=== PATIENT | female | born 1985 | race Caucasian/White ===

== ENCOUNTER 2023-06-20 12:46 | Emergency (ER) | payer MEDICAID, SELFPAY ==
[2023-06-20] VITALS (29 sets, daily range): BP systolic 128–170; BP diastolic 83–97; PULSE 60; RESP 18; TEMP 36.6; O2SAT 77–100; BMI 40.9
--- NOTE | 2023-06-20 13:17 | CT_ITS ---
The [address] [address] Patient Name: JYOTI MEHTA MRN: [id number] date: 1985 Sex: F Assigned Patient Location: ER Current Patient Location: ER Accession/Order Number: [id number] Exam Date: 06/20/2023 14:44 Report Date: 06/20/2023 15:15 At the request of: KARTIK LYLES Procedure: CT abdomen pelvis w con EXAM: CT abdomen pelvis w con HISTORY: Abdominal pain COMPARISON: CT abdomen and pelvis 08/03/2023. TECHNIQUE: Following intravenous administration of 90 cc of Omnipaque 350, axial soft tissue windows of the abdomen and pelvis were performed with coronal and sagittal reformats. CT dose reduction technique was used including Automated Exposure Control. Findings: ABDOMEN: There is focal fatty infiltration within the liver adjacent to the falciform ligament. There are multiple stones within the gallbladder. The spleen, pancreas, and kidneys are unremarkable. The visualized portions of the bilateral ureters are nondilated. Unremarkable left adrenal gland. Within the right adrenal gland there is a stable 4.2 cm nodule. Evaluation of the bowel is limited given the absence of oral contrast. No bowel obstruction. The appendix is nondilated. The aorta is normal caliber. No enlarged abdominal lymph nodes or free abdominal fluid. Tiny fat-containing umbilicus hernia. Pelvis: Unremarkable bladder. Fibroid uterus. The largest is a partially pedunculated fibroid off the fundus measuring approximately 6.6 cm. No enlarged pelvic lymph nodes or free pelvic fluid. No aggressive sclerotic or lytic osseous lesions. Grade 1 anterolisthesis of L4 on L5 with bilateral pars interarticularis defects. CT/CT abdomen pelvis w con IMPRESSION: 1. Cholelithiasis. 2. Stable right adrenal nodule. 3. Fibroid uterus. Electronically authenticated by: MISSY CASTILLO Date: 06/20/2023 15:15
[2023-06-20] MEDS: ONDANSETRON PF 4 MG/2 ML VIAL IV (13:30)
[2023-06-20] MEDS: PANTOPRAZOLE SODIUM 40 MG VIAL IV (13:30)
[2023-06-20] MEDS: MORPHINE SULFATE 4 MG/ML VIAL IV (13:30)
[2023-06-20] MEDS: 0.9 % SODIUM CHLORIDE 1,000 ML 100 ML IV (13:31)
[2023-06-20 13:32] LABS: Basophils Percent Auto 0.2 % (0.2-2.0); Eosinophils Percent Auto 0.1 % (0.9-7.0); Hematocrit 44.9 % (36.0-48.0); Hemoglobin 15.6 g/dL (12.0-16.0); Immature Granulocytes Abs Auto 0.04 10^3/uL (0.00-0.03); Immature Granulocytes Pct Auto 0.4 % (0.0-0.5); Lymphocytes Absolute Auto 1.2 10^3/uL (1.2-3.8); Lymphocytes Percent Auto 10.6 % (20.5-60.0); Mean Corpuscular HGB Conc 34.7 g/dL (29.9-35.2); Mean Corpuscular Hemoglobin 29.4 pg (26.7-34.0); Mean Corpuscular Volume 84.6 fL (81.0-99.0); Mean Platelet Volume 10.6 fL (9.5-13.5); Monocytes Absolute Auto 0.6 10^3/uL (0.3-0.8); Monocytes Percent Auto 5.7 % (1.7-12.0); Neutrophils Absolute Auto 9.2 10^3/uL (1.4-6.5); Platelet Count 235 10^3/uL (150-450); Red Blood Count 5.31 10^6/uL (4.20-5.40); Red Cell Distribution Width 13.2 % (11.0-15.0); White Blood Count 11.1 10^3/uL (4.0-11.0)
--- NOTE | 2023-06-20 13:32 | ED_ITS ---
Documented by User: SANDRO Wild 06/20/23 18:37 HPI - Nausea/Vomiting/Diarrhea General Chief complaint: Nausea/Vomiting/Diarrhea Stated complaint: vomiting Time Seen by Provider: 06/20/23 13:12 Source: patient Mode of arrival: walk-in Limitations: no limitations History of Present Illness HPI Narrative: patient is a 37-year-old female who presents to the emergency department for a seven day history of persistent vomiting, diffuse abdominal pain. She reports occasional diarrhea. She has had no objective fevers or upper respiratory symptoms. She denies urinary symptoms. She has had two previous C-sections and removal of one of her ovaries. She is not concerned for . No medications taken prior to arrival. Patient states she has been forcing herself to drink water because she has been dry heaving and she would rather throw up the water then dry heaves . Related Data Previous Rx's Medication Instructions Recorded dicyclomine 20 mg tablet 20 mg PO TID PRN abdominal pain #7 06/20/23 tabs ondansetron 4 mg disintegrating 4 mg PO Q4H PRN nausea and 06/20/23 tablet vomiting 3 days #6 tabs potassium chloride 20 mEq 20 meq PO DAILY #7 tabs 06/20/23 tablet,extended release(part/cryst) promethazine 25 mg rectal 25 mg HI Q6H PRN nausea and 06/20/23 suppository vomiting #6 ea Allergies Allergy/AdvReac Type Severity Reaction Status Date / Time Penicillins AdvReac Intermediate Verified 06/20/23 12:51 Review of Systems ROS Constitutional Denies: fever or chills Ears, nose, mouth, and throat Denies: throat pain Cardiovascular Denies: chest pain Respiratory Denies: shortness of breath or cough Gastrointestinal Reports: abdominal pain, nausea, vomiting and diarrhea Genitourinary Denies: painful urination Musculoskeletal Denies: back pain Integumentary/Breast Denies: rash Neurological Denies: headache Allergic/Immunologic Denies: hives Exam Narrative Exam Narrative: Gen.: Awake, alert, in no distress Head: Normocephalic, atraumatic ENT: Moist mucous membranes Respiratory: No respiratory distress, lungs clear bilaterally Cardio: Regular rate and rhythm Gastrointestinal: Abdomen is soft, nondistended diffusely tender to palpation with no pain out of proportion or point tenderness of the abdomen Extremities: Moves extremities equally Psych: anxious, actively dry heaving on exam Neuro: No focal neuro deficit Skin: Warm, dry, intact Constitutional Vital Signs, click to edit/add: Last Vital Signs Temp 97.8 F 06/20/23 12:51 Pulse 60 06/20/23 12:51 Resp 18 06/20/23 12:51 BP 138/96 H 06/20/23 15:00 Pulse Ox 97 06/20/23 18:30 O2 Del Method Room Air 06/20/23 12:51 Course Vital Signs Vital signs: Vital Signs Temperature 97.8 F 06/20/23 12:51 Pulse Rate 60 06/20/23 12:51 Respiratory Rate 18 06/20/23 12:51 Blood Pressure 170/88 H 06/20/23 12:51 Pulse Oximetry 98 06/20/23 12:51 Oxygen Delivery Method Room Air 06/20/23 12:51 Temperature 97.8 F 06/20/23 12:51 Pulse Rate 60 06/20/23 12:51 Respiratory Rate 18 06/20/23 12:51 Blood Pressure 138/96 H 06/20/23 15:00 Pulse Oximetry 97 06/20/23 18:30 Oxygen Delivery Method Room Air 06/20/23 12:51 MDM - Nausea/Vomiting/Diarrhea MDM Narrative Medical decision making narrative: patient was treated with IV fluids, Zofran. She reported still feeling nauseous, we lost her IV access multiple times. She was given 25 mg of IV Phenergan in addition to morphine, Protonix. Lab studies initially showed an elevated lactic acid and hypokalemia. Patient with minimally elevated bilirubin but normal LFTs and normal white blood cell count. She has no point tenderness in the right upper quadrant and CT shows gallstones with no evidence of acute cholecystitis. Patient will be discharged home. She was given IV fluids with potassium over four hours as well as additional potassium. She was able to tolerate the oral medication without vomiting. She is also positive for marijuana on her drug screen so cyclic vomiting may be contributing to her symptoms. Patient will be discharged home with Zofran, Phenergan, potassium and Bentyl. Follow-up with PCP and return to the Emergency Room if symptoms change or worsen. Abdomen is soft and benign on recheck by attending physician prior to discharge. Medical Records Attestation: I reviewed the patient's medical records. Lab Data Attestation: I reviewed the patient's lab results. Labs: Lab Results 06/20/23 06/20/23 06/20/23 Range/Units 13:23 14:40 16:49 WBC 11.1 H (4.0-11.0) 10^3/uL RBC 5.31 (4.20-5.40) 10^6/uL Hgb 15.6 (12.0-16.0) g/dL Hct 44.9 (36.0-48.0) % MCV 84.6 (81.0-99.0) fL MCH 29.4 (26.7-34.0) pg MCHC 34.7 (29.9-35.2) g/dL RDW 13.2 (11.0-15.0) % Plt Count 235 (150-450) 10^3/uL MPV 10.6 (9.5-13.5) fL Neut % (Auto) 83.0 H (43.0-75.0) % Lymph % (Auto) 10.6 L (20.5-60.0) % Bladen % (Auto) 5.7 (1.7-12.0) % Eos % (Auto) 0.1 L (0.9-7.0) % Baso % (Auto) 0.2 (0.2-2.0) % Neut # (Auto) 9.2 H (1.4-6.5) 10^3/uL Lymph # (Auto) 1.2 (1.2-3.8) 10^3/uL Bladen # (Auto) 0.6 (0.3-0.8) 10^3/uL Eos # (Auto) 0.0 (0.0-0.7) 10^3/uL Baso # (Auto) 0.0 (0.0-0.1) 10^3/uL Abs Immat Gran (auto) 0.04 H (0.00-0.03) 10^3/uL Imm/Tot Granulo (auto) 0.4 (0.0-0.5) % Sodium 137 (136-145) mmol/L Potassium 2.8 L* (3.5-5.1) mmol/L Chloride 98 (98-107) mmol/L Carbon Dioxide 23.0 (21.0-32.0) mmol/L Anion Gap 18.8 BUN 13.0 (7.0-18.0) mg/dL Creatinine 0.90 (0.55-1.02) mg/dL Est GFR ( Amer) >60 (>=60) Est GFR (Non-Af Amer) >60 (>=60) BUN/Creatinine Ratio 14.4 Glucose 115 H (74-106) mg/dL Lactate 2.4 H* 1.8 (0.4-2.0) mmol/L Calcium 9.2 (8.5-10.1) mg/dL Total Bilirubin 1.3 H (0.2-1.0) mg/dL Direct Bilirubin 0.3 H (0.0-0.2) mg/dL AST 21 (15-37) U/L ALT 39 (14-59) U/L Alkaline Phosphatase 58 (46-116) U/L Total Protein 7.9 (6.4-8.2) g/dL Albumin 4.4 (3.4-5.0) g/dL Globulin 3.5 g/dL Albumin/Globulin Ratio 1.3 Lipase 67.0 L (73.0-393.0) U/L Serum HCG, Qual Negative (NEGATIVE) Urine Color Yellow (YELLOW) Urine Clarity Clear (CLEAR) Urine pH 8.0 (5.0-9.0) Ur Specific [place] 1.010 (1.005-1.025) Urine Protein Negative (NEG/TRACE) mg/dL Urine Glucose (UA) Negative (NEGATIVE) mg/dL Urine Ketones >=80 A (NEGATIVE) mg/dL Urine Occult Blood Moderate A (NEGATIVE) Urine Nitrite Negative (NEGATIVE) Urine Bilirubin Negative (NEGATIVE) Urine Urobilinogen 1.0 (0.2-1.0) EU/dL Ur Leukocyte Esterase Negative (NEGATIVE) Urine RBC 5-10 A (0-2) #/HPF Urine WBC 0-2 A (NONE SEEN) #/HPF Ur Squamous Epith Cells Moderate A (NONE/RARE) #/LPF Urine Crystals None seen (None Seen) #/HPF Urine Bacteria Trace A (NONE SEEN) #/HPF Urine Casts None seen (NONE SEEN) #/LPF Urine Mucus Trace A (NONE SEEN) Urine Trichomonas Seen A (NONE SEEN) Ur Culture Indicated? No Urine Opiates Screen Positive A (NEGATIVE) Ur Buprenorphine Scrn Negative (NEGATIVE) Ur Oxycodone Screen Negative (NEGATIVE) Urine Methadone Screen Negative (NEGATIVE) Ur Propoxyphene Screen Negative (NEGATIVE) Ur Barbiturates Screen Negative (NEGATIVE) U Tricyclic Antidepress Negative (NEGATIVE) Ur Phencyclidine Scrn Negative (NEGATIVE) Ur Amphetamines Screen Negative (NEGATIVE) U Methamphetamines Scrn Negative (NEGATIVE) U Benzodiazepines Scrn Negative (NEGATIVE) Urine Cocaine Screen Negative (NEGATIVE) U Cannabinoids Screen Positive A (NEGATIVE) Imaging Data CT scan - abdomen: Attestation: I have reviewed the pertinent imaging results. Radiologist's impression: Procedure: CT abdomen pelvis w con EXAM: CT abdomen pelvis w con HISTORY: Abdominal pain COMPARISON: CT abdomen and pelvis 08/03/2023. TECHNIQUE: Following intravenous administration of 90 cc of Omnipaque 350, axial soft tissue windows of the abdomen and pelvis were performed with coronal and sagittal reformats. CT dose reduction technique was used including Automated Exposure Control. Findings: ABDOMEN: There is focal fatty infiltration within the liver adjacent to the falciform ligament. There are multiple stones within the gallbladder. The spleen, pancreas, and kidneys are unremarkable. The visualized portions of the bilateral ureters are nondilated. Unremarkable left adrenal gland. Within the right adrenal gland there is a stable 4.2 cm nodule. Evaluation of the bowel is limited given the absence of oral contrast. No bowel obstruction. The appendix is nondilated. The aorta is normal caliber. No enlarged abdominal lymph nodes or free abdominal fluid. Tiny fat-containing umbilicus hernia. Pelvis: Unremarkable bladder. Fibroid uterus. The largest is a partially pedunculated fibroid off the fundus measuring approximately 6.6 cm. No enlarged pelvic lymph nodes or free pelvic fluid. No aggressive sclerotic or lytic osseous lesions. Grade 1 anterolisthesis of L4 on L5 with bilateral pars interarticularis defects. IMPRESSION: 1. Cholelithiasis. 2. Stable right adrenal nodule. 3. Fibroid uterus. Electronically authenticated by: MISSY CASTILLO Date: 06/20/2023 15:15 Discharge Plan Discharge Chief Complaint: Nausea/Vomiting/Diarrhea Clinical Impression: Nausea and vomiting, Cholelithiasis, Dehydration, Hypokalemia Patient Disposition: Home, Self-Care Condition: Fair Prescriptions / Home Meds: New promethazine 25 mg suppository 25 mg HI Q6H PRN (Reason: nausea and vomiting) Qty: 6 0RF dicyclomine 20 mg tablet 20 mg PO TID PRN (Reason: abdominal pain) Qty: 7 0RF ondansetron 4 mg tablet,disintegrating 4 mg PO Q4H PRN (Reason: nausea and vomiting) 3 Days Qty: 6 0RF potassium chloride 20 mEq tablet,ER particles/crystals 20 meq PO DAILY Qty: 7 0RF Instructions: Dehydration (ED), Gallstones (ED), Hypokalemia (ED), Acute Nausea and Vomiting (ED) Additional Instructions: You are aware of the right adnexal nodule, a copy of her CAT scan report was given to you. We also discussed the fibroid that he had as well, follow-up with [facility] [employer] for further direction He had gallstones, they're not causing any type of infection, irritation or inflammation. Yet to prescriptions for nausea medication, Zofran ODT and also Phenergan suppositories to help with nausea and vomiting home. Take daily potassium tablet the next 7 days. Follow-up with her PCP. Increase Gatorade and Powerade at home. Stand Alone Forms: Portal Instructions Referrals: Physician,Non-Staff, [Primary Care Provider] - 1 week Discharge Date/Time: 06/20/23 19:18 Documented by User: Cristobal Laureano MD 06/20/23 20:03 HPI - Nausea/Vomiting/Diarrhea General Chief complaint: Nausea/Vomiting/Diarrhea Stated complaint: vomiting Time Seen by Provider: 06/20/23 13:12 Related Data Previous Rx's Medication Instructions Recorded dicyclomine 20 mg tablet 20 mg PO TID PRN abdominal pain #7 06/20/23 tabs ondansetron 4 mg disintegrating 4 mg PO Q4H PRN nausea and 06/20/23 tablet vomiting 3 days #6 tabs potassium chloride 20 mEq 20 meq PO DAILY #7 tabs 06/20/23 tablet,extended release(part/cryst) promethazine 25 mg rectal 25 mg HI Q6H PRN nausea and 06/20/23 suppository vomiting #6 ea Allergies Allergy/AdvReac Type Severity Reaction Status Date / Time Penicillins AdvReac Intermediate Verified 06/20/23 12:51 Exam Constitutional Vital Signs, click to edit/add: Last Vital Signs Temp 97.8 F 06/20/23 12:51 Pulse 60 06/20/23 12:51 Resp 18 06/20/23 12:51 BP 138/96 H 06/20/23 15:00 Pulse Ox 97 06/20/23 18:30 O2 Del Method Room Air 06/20/23 12:51 Course Vital Signs Vital signs: Vital Signs Temperature 97.8 F 06/20/23 12:51 Pulse Rate 60 06/20/23 12:51 Respiratory Rate 18 06/20/23 12:51 Blood Pressure 170/88 H 06/20/23 12:51 Pulse Oximetry 98 06/20/23 12:51 Oxygen Delivery Method Room Air 06/20/23 12:51 Temperature 97.8 F 06/20/23 12:51 Pulse Rate 60 06/20/23 12:51 Respiratory Rate 18 06/20/23 12:51 Blood Pressure 138/96 H 06/20/23 15:00 Pulse Oximetry 97 06/20/23 18:30 Oxygen Delivery Method Room Air 06/20/23 12:51 MDM - Nausea/Vomiting/Diarrhea MDM Narrative Medical decision making narrative: patient was treated with IV fluids, Zofran. She reported still feeling nauseous, we lost her IV access multiple times. She was given 25 mg of IV Phenergan in addition to morphine, Protonix. Lab studies initially showed an elevated lactic acid and hypokalemia. Patient with minimally elevated bilirubin but normal LFTs and normal white blood cell count. She has no point tenderness in the right upper quadrant and CT shows gallstones with no evidence of acute cholecystitis. Patient will be discharged home. She was given IV fluids with potassium over four hours as well as additional potassium. She was able to tolerate the oral medication without vomiting. She is also positive for marijuana on her drug screen so cyclic vomiting may be contributing to her symptoms. Patient will be discharged home with Zofran, Phenergan, potassium and Bentyl. Follow-up with PCP and return to the Emergency Room if symptoms change or worsen. Abdomen is soft and benign on recheck by attending physician prior to discharge. Patient has been in the Emergency Room for 6+ hours.Patient's IV infiltrated twice. Patient did drink oral and had IV potassium as well. Patient has been drinking Gatorade as well. Critical care time 35 minutes exclusive from separate billable procedures that were performed. The following was considered in the determination of critical care but not limited to the level of medical decision making, intensive cardiac and/or respiratory monitoring, frequent vital sign monitoring, evaluation of laboratory studies, evaluation of radiographic studies, oxygen monitoring, and constant monitoring and speaking to family at bedside Lab Data Labs: Lab Results 06/20/23 06/20/23 06/20/23 Range/Units 13:23 14:40 16:49 WBC 11.1 H (4.0-11.0) 10^3/uL RBC 5.31 (4.20-5.40) 10^6/uL Hgb 15.6 (12.0-16.0) g/dL Hct 44.9 (36.0-48.0) % MCV 84.6 (81.0-99.0) fL MCH 29.4 (26.7-34.0) pg MCHC 34.7 (29.9-35.2) g/dL RDW 13.2 (11.0-15.0) % Plt Count 235 (150-450) 10^3/uL MPV 10.6 (9.5-13.5) fL Neut % (Auto) 83.0 H (43.0-75.0) % Lymph % (Auto) 10.6 L (20.5-60.0) % Bladen % (Auto) 5.7 (1.7-12.0) % Eos % (Auto) 0.1 L (0.9-7.0) % Baso % (Auto) 0.2 (0.2-2.0) % Neut # (Auto) 9.2 H (1.4-6.5) 10^3/uL Lymph # (Auto) 1.2 (1.2-3.8) 10^3/uL Bladen # (Auto) 0.6 (0.3-0.8) 10^3/uL Eos # (Auto) 0.0 (0.0-0.7) 10^3/uL Baso # (Auto) 0.0 (0.0-0.1) 10^3/uL Abs Immat Gran (auto) 0.04 H (0.00-0.03) 10^3/uL Imm/Tot Granulo (auto) 0.4 (0.0-0.5) % Sodium 137 (136-145) mmol/L Potassium 2.8 L* (3.5-5.1) mmol/L Chloride 98 (98-107) mmol/L Carbon Dioxide 23.0 (21.0-32.0) mmol/L Anion Gap 18.8 BUN 13.0 (7.0-18.0) mg/dL Creatinine 0.90 (0.55-1.02) mg/dL Est GFR ( Amer) >60 (>=60) Est GFR (Non-Af Amer) >60 (>=60) BUN/Creatinine Ratio 14.4 Glucose 115 H (74-106) mg/dL Lactate 2.4 H* 1.8 (0.4-2.0) mmol/L Calcium 9.2 (8.5-10.1) mg/dL Total Bilirubin 1.3 H (0.2-1.0) mg/dL Direct Bilirubin 0.3 H (0.0-0.2) mg/dL AST 21 (15-37) U/L ALT 39 (14-59) U/L Alkaline Phosphatase 58 (46-116) U/L Total Protein 7.9 (6.4-8.2) g/dL Albumin 4.4 (3.4-5.0) g/dL Globulin 3.5 g/dL Albumin/Globulin Ratio 1.3 Lipase 67.0 L (73.0-393.0) U/L Serum HCG, Qual Negative (NEGATIVE) Urine Color Yellow (YELLOW) Urine Clarity Clear (CLEAR) Urine pH 8.0 (5.0-9.0) Ur Specific [place] 1.010 (1.005-1.025) Urine Protein Negative (NEG/TRACE) mg/dL Urine Glucose (UA) Negative (NEGATIVE) mg/dL Urine Ketones >=80 A (NEGATIVE) mg/dL Urine Occult Blood Moderate A (NEGATIVE) Urine Nitrite Negative (NEGATIVE) Urine Bilirubin Negative (NEGATIVE) Urine Urobilinogen 1.0 (0.2-1.0) EU/dL Ur Leukocyte Esterase Negative (NEGATIVE) Urine RBC 5-10 A (0-2) #/HPF Urine WBC 0-2 A (NONE SEEN) #/HPF Ur Squamous Epith Cells Moderate A (NONE/RARE) #/LPF Urine Crystals None seen (None Seen) #/HPF Urine Bacteria Trace A (NONE SEEN) #/HPF Urine Casts None seen (NONE SEEN) #/LPF Urine Mucus Trace A (NONE SEEN) Urine Trichomonas Seen A (NONE SEEN) Ur Culture Indicated? No Urine Opiates Screen Positive A (NEGATIVE) Ur Buprenorphine Scrn Negative (NEGATIVE) Ur Oxycodone Screen Negative (NEGATIVE) Urine Methadone Screen Negative (NEGATIVE) Ur Propoxyphene Screen Negative (NEGATIVE) Ur Barbiturates Screen Negative (NEGATIVE) U Tricyclic Antidepress Negative (NEGATIVE) Ur Phencyclidine Scrn Negative (NEGATIVE) Ur Amphetamines Screen Negative (NEGATIVE) U Methamphetamines Scrn Negative (NEGATIVE) U Benzodiazepines Scrn Negative (NEGATIVE) Urine Cocaine Screen Negative (NEGATIVE) U Cannabinoids Screen Positive A (NEGATIVE) Discharge Plan Discharge Chief Complaint: Nausea/Vomiting/Diarrhea Clinical Impression: Nausea and vomiting, Cholelithiasis, Dehydration, Hypokalemia Patient Disposition: Home, Self-Care Condition: Fair Prescriptions / Home Meds: New promethazine 25 mg suppository 25 mg HI Q6H PRN (Reason: nausea and vomiting) Qty: 6 0RF dicyclomine 20 mg tablet 20 mg PO TID PRN (Reason: abdominal pain) Qty: 7 0RF ondansetron 4 mg tablet,disintegrating 4 mg PO Q4H PRN (Reason: nausea and vomiting) 3 Days Qty: 6 0RF potassium chloride 20 mEq tablet,ER particles/crystals 20 meq PO DAILY Qty: 7 0RF Instructions: Dehydration (ED), Gallstones (ED), Hypokalemia (ED), Acute Nausea and Vomiting (ED) Additional Instructions: You are aware of the right adnexal nodule, a copy of her CAT scan report was given to you. We also discussed the fibroid that he had as well, follow-up with [employer] [facility] for further direction He had gallstones, they're not causing any type of infection, irritation or inflammation. Yet to prescriptions for nausea medication, Zofran ODT and also Phenergan suppositories to help with nausea and vomiting home. Take daily potassium tablet the next 7 days. Follow-up with her PCP. Increase Gatorade and Powerade at home. Stand Alone Forms: Portal Instructions Referrals: Physician,Non-Staff, MD [Primary Care Provider] - 1 week Discharge Date/Time: 06/20/23 19:18 Critical Care Time Critical Care Time Critical Care Time: Yes Total Critical Care Time: 35 Attestation: Critical care time 35 minutes exclusive from separate billable procedures that were performed. The following was considered in the determination of critical care but not limited to the level of medical decision making, intensive cardiac and/or respiratory monitoring, frequent vital sign monitoring, evaluation of laboratory studies, evaluation of radiographic studies, oxygen monitoring, and constant monitoring and speaking to family at bedside
[2023-06-20 13:52] LABS: HCG Qualitative NEGATIVE (NEGATIVE)
[2023-06-20 13:56] LABS: Alanine Aminotransferase 39 U/L (14-59); Albumin Globulin Ratio 1.3; Albumin Level 4.4 g/dL (3.4-5.0); Alkaline Phosphatase 58 U/L (46-116); Anion Gap 18.8; Aspartate Amino Transferase 21 U/L (15-37); BUN Creatinine Ratio 14.4; Bilirubin Direct 0.3 mg/dL (0.0-0.2); Bilirubin Total 1.3 mg/dL (0.2-1.0); Calcium 9.2 mg/dL (8.5-10.1); Chloride 98 mmol/L (98-107); Estimated GFR (African America >60 (>=60); Estimated GFR (Non-African Ame >60 (>=60); Globulin 3.5 g/dL; Glucose 115 mg/dL (74-106); Sodium 137 mmol/L (136-145); Total Protein 7.9 g/dL (6.4-8.2)
[2023-06-20 14:02] LABS: Potassium 2.8 mmol/L (3.5-5.1)
[2023-06-20 14:03] LABS: Lactate/Lactic Acid 2.4 mmol/L (0.4-2.0)
[2023-06-20] MEDS: POTASSIUM CHLORIDE IN 0.9%NACL 1,000 ML 250 MEQ IV (14:59)
[2023-06-20 15:27] LABS: Lactate/Lactic Acid 1.8 mmol/L (0.4-2.0)
[2023-06-20] MEDS: POTASSIUM CHLORIDE 10 MEQ ER TABLET 40 MEQ PO (15:46)
[2023-06-20] MEDS: PROMETHAZINE HCL 25 MG/ML VIAL IM (15:46)
[2023-06-20 17:02] LABS: Bilirubin Urine NEGATIVE (NEGATIVE); Blood Urine MODERATE (NEGATIVE); Clarity Urine CLEAR (CLEAR); Color Urine YELLOW (YELLOW); Glucose Urine UA NEGATIVE (NEGATIVE); Ketones Urine >=80 mg/dL (NEGATIVE); Leukocyte Esterase Urine NEGATIVE (NEGATIVE); Nitrite Urine NEGATIVE (NEGATIVE); Protein Urine NEGATIVE (NEG/TRACE)
[2023-06-20 17:07] LABS: Urine Microscopic Indicated YES
[2023-06-20 17:11] LABS: Amphetamine Screen Urine NEGATIVE (NEGATIVE); Barbiturates Screen Urine NEGATIVE (NEGATIVE); Benzodiazepines Screen Urine NEGATIVE (NEGATIVE); Buprenorphine Screen Urine NEGATIVE (NEGATIVE); Cannabinoid Screen Urine POSITIVE (NEGATIVE); Cocaine Screen Urine NEGATIVE (NEGATIVE); Methadone Screen Urine NEGATIVE (NEGATIVE); Methamphetamines Screen Urine NEGATIVE (NEGATIVE); Opiate Screen Urine POSITIVE (NEGATIVE); Oxycodone Screen Urine NEGATIVE (NEGATIVE); Phencyclidine Screen Urine NEGATIVE (NEGATIVE); Tricyclic Antidepressant Urine NEGATIVE (NEGATIVE)
[2023-06-20 17:32] LABS: Bacteria Urine TRACE #/HPF (NONE SEEN); Cast Seen? NONE SEEN #/LPF (NONE SEEN); Crystals Seen? None Seen #/HPF (None Seen); Squamous Epithelial Cell Urine MODERATE #/LPF (NONE/RARE); Trichomonas Urine SEEN (NONE SEEN); Urine Culture Indicated NO; WBC Urine 0-2 #/HPF (NONE SEEN)
[2023-06-20 17:33] LABS: Mucus Urine TRACE (NONE SEEN)
== END 2023-06-20 19:18 | disposition home or self-care (01) ==
PROVIDERS: Physician Assistant; Emergency Provider Emergency Medicine
DX: R11.2 Nausea with vomiting, unspecified (principal); K80.20 Calculus of gallbladder without cholecystitis without obstruction; E86.0 Dehydration; E87.6 Hypokalemia; R82.5 Elevated urine levels of drugs, medicaments and biological substances
CPT/HCPCS: 36415; 74177; 80053; 80076; 80307; 81001; 81003; 82248; 83605; 83690; 84703; 85025; 96361; 96372; 96374; 96375; 99285; Q9967

== ENCOUNTER 2023-06-22 09:43 | Emergency (ER) | payer MEDICAID, SELFPAY ==
[2023-06-22 09:47] VITALS: BP 146/93; PULSE 62; RESP 20; O2SAT 100; BMI 43.6
--- NOTE | 2023-06-22 10:11 | US_ITS ---
The [address] [address] Patient Name: JYOTI MEHTA MRN: [id number] date: 1985 Sex: F Assigned Patient Location: ER Current Patient Location: ER Accession/Order Number: [id number] Exam Date: 06/22/2023 10:45 Report Date: 06/22/2023 11:33 At the request of: KATHY LEY Procedure: US right upper quadrant EXAMINATION: US right upper quadrant HISTORY: RUQ pain, stones on CT recently COMPARISON: No relevant comparison available. TECHNIQUE: Transabdominal evaluation of the right upper quadrant. FINDINGS: LIVER: Normal size and echotexture. Color Doppler demonstrates patent hepatic veins. PORTAL VEIN: Duplex Doppler demonstrates normal hepatopetal flow pattern with flow velocity averaging 41 cm/s. GALLBLADDER: Numerous stones within the gallbladder. Wall thickness is upper limits of normal, 3 mm. No free fluid. Negative sonographic Draper's sign. BILIARY: No abnormal dilation or stones. Common bile duct diameter is within normal limits. PANCREASE: No visible mass, abnormal atrophy, or duct dilation. KIDNEY: No hydronephrosis. No visible mass or stones. Size: 10.9 x 4.5 x 5.3 cm US/US right upper quadrant IMPRESSION: 1. Cholelithiasis without ultrasound evidence of acute cholecystitis. Electronically authenticated by: TYRONE FELICIANO Date: 06/22/2023 11:33
--- NOTE | 2023-06-22 10:13 | ED_ITS ---
HPI - Abdominal Pain General Chief Complaint: Abdominal Pain Stated Complaint: VOMITING Time Seen by Provider: 06/22/23 09:51 Source: patient Mode of arrival: walk-in History of Present Illness HPI narrative: 37-year-old female presents for epigastric and right upper quadrant pain. She's had this for about nine days. She was here several days ago and had a CAT scan which showed gallstones and ultimately she was discharged home. She continues to have these symptoms and states she can't keep anything down. No fever or trauma. The pain is moderate to severe Related Data Previous Rx's Medication Instructions Recorded dicyclomine 20 mg tablet 20 mg PO TID PRN abdominal pain #7 06/20/23 tabs ondansetron 4 mg disintegrating 4 mg PO Q4H PRN nausea and 06/20/23 tablet vomiting 3 days #6 tabs potassium chloride 20 mEq 20 meq PO DAILY #7 tabs 06/20/23 tablet,extended release(part/cryst) promethazine 25 mg rectal 25 mg VT Q6H PRN nausea and 06/20/23 suppository vomiting #6 ea promethazine 25 mg tablet 25 mg PO Q6H PRN nausea and 06/22/23 vomiting #20 tabs Allergies Allergy/AdvReac Type Severity Reaction Status Date / Time Penicillins AdvReac Intermediate Verified 06/22/23 09:50 Review of Systems ROS Narrative A ten point review of systems is negative except as noted above. Exam Narrative Exam Narrative: Nurses note and vital signs reviewed and patient is not hypoxic. General: The patient appears well and in no apparent distress. Patient is resting comfortably on cart. Skin: Warm, dry, no pallor noted. There is no rash noted. Head: Normocephalic, atraumatic Eye: Normal conjunctiva, no drainage Ears, Nose, Mouth, and Throat: oral mucosa is moist. Nares patent. Cardiovascular: Regular Rate and Rhythm Respiratory: Patient is in no distress, no accessory muscle use, lungs are clear to auscultation, no wheezing, rales or rhonchi Back: non-tender GI: tenderness present in the epigastric area and right upper quadrant. No rebound or guarding. No lower abdominal tenderness. Musculoskeletal: The patient has no evidence of calf tenderness, no pitting edema, symmetrical pulses noted bilaterally Neurological: A&O, normal speech Psychiatric: Cooperative Constitutional Vital Signs, click to edit/add: Last Vital Signs Pulse 61 06/22/23 12:25 Resp 16 06/22/23 12:25 BP 102/66 06/22/23 12:25 Pulse Ox 100 06/22/23 12:25 O2 Del Method Room Air 06/22/23 12:25 Course Vital Signs Vital signs: Vital Signs Pulse Rate 62 06/22/23 09:47 Respiratory Rate 20 06/22/23 09:47 Blood Pressure 146/93 H 06/22/23 09:47 Pulse Oximetry 100 06/22/23 09:47 Oxygen Delivery Method Room Air 06/22/23 09:47 Pulse Rate 61 06/22/23 12:25 Respiratory Rate 16 06/22/23 12:25 Blood Pressure 102/66 06/22/23 12:25 Pulse Oximetry 100 06/22/23 12:25 Oxygen Delivery Method Room Air 06/22/23 12:25 MDM - Abdominal Pain MDM Narrative Medical decision making narrative: gallbladder ultrasound shows gallstones, no evidence of acute cholecystitis. Bilirubin minimally elevated but at this point she doesn't require admission the hospital. She is being referred to surgery for appropriatte follow-up. Zofran hasn't been helping her so she is being prescribed Phenergan. Treatment diagnosis and follow up are discussed with the patient and her family. Differential Diagnosis Differential diagnosis: Likely abdominal pain, constipation, diverticulitis, gastroenteritis, pancreatitis and small bowel obstruction Lab Data Attestation: I reviewed the patient's lab results. Labs: Lab Results 06/22/23 06/22/23 Range/Units 10:22 12:18 WBC 8.7 (4.0-11.0) 10^3/uL RBC 5.10 (4.20-5.40) 10^6/uL Hgb 15.0 (12.0-16.0) g/dL Hct 43.5 (36.0-48.0) % MCV 85.3 (81.0-99.0) fL MCH 29.4 (26.7-34.0) pg MCHC 34.5 (29.9-35.2) g/dL RDW 13.1 (11.0-15.0) % Plt Count 214 (150-450) 10^3/uL MPV 10.6 (9.5-13.5) fL Neut % (Auto) 77.7 H (43.0-75.0) % Lymph % (Auto) 14.3 L (20.5-60.0) % [place] % (Auto) 7.2 (1.7-12.0) % Eos % (Auto) 0.1 L (0.9-7.0) % Baso % (Auto) 0.2 (0.2-2.0) % Neut # (Auto) 6.7 H (1.4-6.5) 10^3/uL Lymph # (Auto) 1.2 (1.2-3.8) 10^3/uL [place] # (Auto) 0.6 (0.3-0.8) 10^3/uL Eos # (Auto) 0.0 (0.0-0.7) 10^3/uL Baso # (Auto) 0.0 (0.0-0.1) 10^3/uL Abs Immat Gran (auto) 0.04 H (0.00-0.03) 10^3/uL Imm/Tot Granulo (auto) 0.5 (0.0-0.5) % Sodium 133 L (136-145) mmol/L Potassium 3.0 L (3.5-5.1) mmol/L Chloride 99 (98-107) mmol/L Carbon Dioxide 23.7 (21.0-32.0) mmol/L Anion Gap 13.3 BUN 5.0 L (7.0-18.0) mg/dL Creatinine 0.66 (0.55-1.02) mg/dL Est GFR ( Amer) >60 (>=60) Est GFR (Non-Af Amer) >60 (>=60) BUN/Creatinine Ratio 7.6 Glucose 97 (74-106) mg/dL Calcium 9.1 (8.5-10.1) mg/dL Total Bilirubin 1.7 H (0.2-1.0) mg/dL Direct Bilirubin 0.5 H (0.0-0.2) mg/dL AST 51 H (15-37) U/L ALT 72 H (14-59) U/L Alkaline Phosphatase 56 (46-116) U/L Total Protein 7.7 (6.4-8.2) g/dL Albumin 4.0 (3.4-5.0) g/dL Globulin 3.7 g/dL Albumin/Globulin Ratio 1.1 Lipase 116.0 (73.0-393.0) U/L Urine HCG, Qual Negative (NEGATIVE) Imaging Data gallbladder ultrasound: Radiologist's impression: gallbladder ultrasound per radiologist shows gallstones without acute cholecystitis Discharge Plan Discharge Chief Complaint: Abdominal Pain Clinical Impression: Cholelithiasis, Biliary colic Patient Disposition: Home, Self-Care Time of Disposition Decision: 12:42 Condition: Good Mode of Transportation: Private Vehicle Prescriptions / Home Meds: New promethazine 25 mg tablet 25 mg PO Q6H PRN (Reason: nausea and vomiting) Qty: 20 0RF No Action promethazine 25 mg suppository 25 mg VT Q6H PRN (Reason: nausea and vomiting) Qty: 6 0RF dicyclomine 20 mg tablet 20 mg PO TID PRN (Reason: abdominal pain) Qty: 7 0RF ondansetron 4 mg tablet,disintegrating 4 mg PO Q4H PRN (Reason: nausea and vomiting) 3 Days Qty: 6 0RF potassium chloride 20 mEq tablet,ER particles/crystals 20 meq PO DAILY Qty: 7 0RF Instructions: Biliary Colic (ED), Gallstones (ED) Additional Instructions: follow-up with Dr. Larsen Stand Alone Forms: Portal Instructions Referrals: Physician,Non-Staff, MD [Primary Care Provider] - 1 week
[2023-06-22 10:32] LABS: Basophils Percent Auto 0.2 % (0.2-2.0); Eosinophils Percent Auto 0.1 % (0.9-7.0); Hematocrit 43.5 % (36.0-48.0); Immature Granulocytes Abs Auto 0.04 10^3/uL (0.00-0.03); Immature Granulocytes Pct Auto 0.5 % (0.0-0.5); Lymphocytes Absolute Auto 1.2 10^3/uL (1.2-3.8); Lymphocytes Percent Auto 14.3 % (20.5-60.0); Mean Corpuscular HGB Conc 34.5 g/dL (29.9-35.2); Mean Corpuscular Hemoglobin 29.4 pg (26.7-34.0); Mean Corpuscular Volume 85.3 fL (81.0-99.0); Mean Platelet Volume 10.6 fL (9.5-13.5); Monocytes Absolute Auto 0.6 10^3/uL (0.3-0.8); Monocytes Percent Auto 7.2 % (1.7-12.0); Neutrophils Absolute Auto 6.7 10^3/uL (1.4-6.5); Neutrophils Percent Auto 77.7 % (43.0-75.0); Platelet Count 214 10^3/uL (150-450); Red Cell Distribution Width 13.1 % (11.0-15.0); White Blood Count 8.7 10^3/uL (4.0-11.0)
[2023-06-22] MEDS: ONDANSETRON PF 4 MG/2 ML VIAL IV (10:33)
[2023-06-22] MEDS: MORPHINE SULFATE 2 MG/ML SYRINGE 4 MG IV (10:33)
[2023-06-22] MEDS: 0.9 % SODIUM CHLORIDE 1,000 ML 999 ML IV (10:33)
[2023-06-22 10:46] LABS: Alanine Aminotransferase 72 U/L (14-59); Albumin Globulin Ratio 1.1; Alkaline Phosphatase 56 U/L (46-116); Anion Gap 13.3; Aspartate Amino Transferase 51 U/L (15-37); BUN Creatinine Ratio 7.6; Bilirubin Total 1.7 mg/dL (0.2-1.0); Calcium 9.1 mg/dL (8.5-10.1); Carbon Dioxide 23.7 mmol/L (21.0-32.0); Chloride 99 mmol/L (98-107); Estimated GFR (African America >60 (>=60); Estimated GFR (Non-African Ame >60 (>=60); Globulin 3.7 g/dL; Glucose 97 mg/dL (74-106); Sodium 133 mmol/L (136-145); Total Protein 7.7 g/dL (6.4-8.2)
[2023-06-22 10:50] LABS: Bilirubin Direct 0.5 mg/dL (0.0-0.2)
[2023-06-22 12:25] VITALS: BP 102/66; PULSE 61; RESP 16; O2SAT 100
[2023-06-22 12:35] LABS: HCG Qualitative Urine* NEGATIVE (NEGATIVE)
== END 2023-06-22 12:55 | disposition home or self-care (01) ==
PROVIDERS: Emergency Provider Emergency Medicine
DX: K80.70 Calculus of gallbladder and bile duct without cholecystitis without obstruction (principal)
CPT/HCPCS: 36415; 76705; 80053; 80076; 82248; 83690; 84703; 85025; 96374; 96375; 99284